=== PATIENT | female | born 1970 | race Caucasian/White ===

== ENCOUNTER 2021-08-25 21:53 | Emergency (ER) | payer MEDICAID ==
--- NOTE | 2021-08-25 22:00 | NUR ---
PT NO ANSWER, WILL CALL AGAIN
--- NOTE | 2021-08-25 22:22 | NUR ---
PT CALLED FOR TRIAGE , NO ANSWER
--- NOTE | 2021-08-26 | NUR ---
PT WENT TO [facility]ISTRATION WINDOW AND STATED SHE WAS ASLEEP IN HER CAR AND WHY DIDNT ANYONE COME FIND HER IN THE PARKING LOT. PT PLACED IN ROOM 8. MD SPENCER FOR EVALUATION
--- NOTE | 2021-08-26 01:29 | NUR ---
PT IN ROOM YELLING AND STATED "WHY IS THIS TAKING SO LONG!" PT DECIDED TO [facility] BECAUSE ULTRASOUND WAS DONE. PT LEFT OUT OF ER WITHOUT COMPLETION OF WORK UP. PT DID NOT HAVE IV OR PROVIDED WITH ANY MEDICATION. PT AMBULATORY AND IN STABLE CONDITION
== END 2021-08-26 01:33 | disposition left against medical advice (07) ==
LOC: SED 21:53
DX: R60.0 Localized edema (principal); K35.32 Acute appendicitis with perforation, localized peritonitis, and gangrene, without abscess; K91.5 Postcholecystectomy syndrome
CPT/HCPCS: 99281